=== PATIENT | male | born 2000 | race Caucasian/White ===

== ENCOUNTER 2018-11-26 18:05 | Emergency (ER) | payer SELFPAY ==
[~2018-11-26] VITALS: Ht 175.3 cm; Wt 83.9 kg
--- NOTE | 2018-11-26 18:11 | NUR ---
PT BIBSELF FOR L RIB CAGE PAIN, C/O PAIN/SOB; PT AAOX4, NAD NOTED, VSS, PENDING MD HARDING
[2018-11-26] MEDS ORDERED: IBUPROFEN 600 MG TABLET PO ONE ×2 (18:30→18:34)
[2018-11-26 18:45] LABS: BASOPHILS % (AUTO) 0.6 % (0.0-2.0); EOSINOPHILS % (AUTO) 1.3 % (0.0-6.0); HEMATOCRIT 45 % (39-51); HEMOGLOBIN 15.1 g/dL (13.5-17.5); LYMPHOCYTES # (AUTO) 1.1 /CMM (0.8-4.8); LYMPHOCYTES % (AUTO) 16.7 % (20.0-44.0); MEAN CORPUSCULAR HGB CONC 33 g/dl (31.0-36.0); MEAN CORPUSCULAR VOLUME 91 fL (80-96); MONOCYTES # (AUTO) 0.5 /CMM (0.1-1.30); MONOCYTES % (AUTO) 8.1 % (2.0-12.0); NEUTROPHILS # (AUTO) 4.8 /CMM (1.8-8.9); NEUTROPHILS % (AUTO) 73.3 % (43.0-81.0); PLATELET COUNT (AUTO) 177 /CMM (150-450); RED BLOOD CELL COUNT(AUTO) 5.02 MIL/uL (4.5-6.0); WHITE BLOOD COUNT (AUTO) 6.6 K/uL (4.3-11.0)
[2018-11-26 18:54] LABS: CALCIUM, SERUM 8.9 mg/dL (8.5-10.1); CARBON DIOXIDE 31 mmol/L (21-32); CHLORIDE 103 mmol/L (98-107); GLUCOSE 83 mg/dL (74-106); POTASSIUM 4.1 mmol/L (3.5-5.1); SODIUM SERUM 140 mmol/L (136-145); UREA NITROGEN, BLOOD 18 mg/dL (7-18)
[2018-11-26 19:55] VITALS: BP 121/75
--- NOTE | 2018-11-26 20:08 | NUR ---
Patient discharged to home in stable condition. Written and verbal after care instructions given. Patient verbalizes understanding of instruction.
== END 2018-11-26 20:09 | disposition home or self-care (01) ==
LOC: ER 18:09
DX: R07.89 Other chest pain (principal); J45.909 Unspecified asthma, uncomplicated; F10.10 Alcohol abuse, uncomplicated; Y90.9 Presence of alcohol in blood, level not specified
CPT/HCPCS: 36415; 71046; 80048-TC; 84484-TC; 85025-TC